=== PATIENT | male | born 1965 | race Caucasian/White ===

== ENCOUNTER 2023-06-28 00:22 | Day surgery (SDC) | payer BC, SELFPAY ==
[2023-06-03 13:26] VITALS: BMI 25.3
--- NOTE | 2023-06-27 17:53 | PM.HPGS ---
History of Present Illness History of Present Illness Consent: Risks, benefits, and alternatives have been discussed and questions answered. Patient agrees to proceed with procedure. Chief complaint: hx of colon polyps Narrative: Cristo Acosta is a 57 year old male Who underwent colonoscopy 6 years ago which time he had an adenomatous polyp removed. Review of Systems Review of Systems: All systems reviewed & are unremarkable except as noted in HPI and below PMFSH Past Medical History Medical History Chronic cough Nasal congestion Seborrheic dermatitis Wellness examination Family History Family History Mother Hypertension Social History Social History Smoking status: Former smoker Smoking end date: 06/17/01 Alcohol intake: current Drinks per week: 7 Substance use: never Living arrangements: with family Occupation/Education: occupation Gender identity (if verbalized by the patient): Male Sexual Orientation (if Verbalized by the Patient): Straight or Heterosexual Spiritual care concerns: No Meds Home Medications and Allergies Home Medications Medication Instructions Recorded Confirmed Type amlodipine 10 mg tablet 10 mg PO DAILY #90 tabs 10/04/22 06/28/23 Rx vitamin B complex 1 tablet PO DAILY #30 tabs 10/04/22 06/28/23 Rx cetirizine 10 mg capsule (Zyrtec) 10 mg PO DAILY 06/03/23 06/28/23 History Allergies Allergy/AdvReac Type Severity Reaction Status Date / Time lisinopril AdvReac Unknown Cough Verified 06/28/23 09:46 Exam Const: General: alert Orientation/consciousness: patient oriented x3 Resp: Auscultation: clear to auscultation bilaterally Cardio: Rhythm: regular rhythm GI: GI Palp: Yes Soft to palpation and No Tenderness to palpation present (GI) Neuro: General: patient oriented x3 Assessment and Plan Assessment and plan (1) Colon cancer screening: Code(s): Z12.11 - Encounter for screening for malignant neoplasm of colon Status: Acute Assessment and Plan: Colonoscopy with possible biopsy or polypectomy or cautery or injection of substances.
[2023-06-28 09:48] VITALS: BP 139/90; PULSE 81; RESP 18; TEMP 36.6; O2SAT 99; BMI 25.4
[2023-06-28] MEDS: LACTATED RINGERS 1,000 ML 150 ML IV CONT (09:58)
--- NOTE | 2023-06-28 10:27 | P.PNAN_ITS ---
Anes - Initial Pre Proc Eval Procedure: Operation Date: 06/28/23 11:00 Proposed Procedures p Colonoscopy - Amando Tavarez MD Date/Time: 06/28/23 10:27 Surgeon: Amando Tavarez MD Pre Op Diagnosis: hx of colon polyps Patient Data Age: 57 Gender: M Height: 1.91 m Weight: 92.6 kg Last Vital Signs Temp 98 F 06/28/23 09:48 Pulse 81 06/28/23 09:48 Resp 18 06/28/23 09:48 BP 139/90 06/28/23 09:48 Pulse Ox 99 06/28/23 09:48 O2 Del Method Room Air 06/28/23 09:48 Allergies Allergy/AdvReac Type Severity Reaction Status Date / Time lisinopril AdvReac Unknown Cough Verified 06/28/23 09:46 Home Medications Medication Instructions Recorded Confirmed Type amlodipine 10 mg tablet 10 mg PO DAILY #90 tabs 10/04/22 06/28/23 Rx vitamin B complex 1 tablet PO DAILY #30 tabs 10/04/22 06/28/23 Rx cetirizine 10 mg capsule (Zyrtec) 10 mg PO DAILY 06/03/23 06/28/23 History Patient hx anesthesia problems: none Family hx anesthesia problems: none Results Review: All pre-operative results and documents have been reviewed as part of the pre- operative evaluation. [facility] Past Medical History Medical History Chronic cough Nasal congestion Seborrheic dermatitis Wellness examination Family History Family History Mother Hypertension Social History Social History Smoking status: Former smoker Smoking end date: 06/17/01 Alcohol intake: current Drinks per week: 7 Substance use: never Living arrangements: with family Occupation/Education: occupation Gender identity (if verbalized by the patient): Male Sexual Orientation (if Verbalized by the Patient): Straight or Heterosexual Spiritual care concerns: No Anes - Eval Final PreProcedure Day of Procedure 06/28/23 10:27 Patient weight: normal Heart: regular rate and rhythm Lungs: clear to auscultation Airway: Mallampati scale class II Neurological: alert and oriented Last oral intake: >/= 8 hours ASA classification: II Emergent: no Anesthetic plan: proceed Anesthesia type and monitoring: general GIVS and standard monitoring Results Review: All pre-operative results and documents have been reviewed as part of the pre- operative evaluation. Informed Consent: The patient's anesthetic plan and its attendant risks and benefits were discussed with the patient/family/POA. Questions were solicited and answers provided to the satisfaction of the patient/family/POA.
[2023-06-28] MEDS: SIMETHICONE ORAL SUSPENSION 20 MG/0.3 ML 30 ML BOTTLE 0.6 ML IRRIGATION (10:55)
[2023-06-28 11:02] VITALS: BP 107/73; PULSE 75; RESP 20; O2SAT 97
[2023-06-28 11:12] VITALS: BP 106/68; PULSE 75; RESP 23; O2SAT 97
[2023-06-28 11:22] VITALS: BP 126/86; PULSE 75; RESP 20; O2SAT 97
== END 2023-06-28 11:30 | disposition home or self-care (01) ==
PROVIDERS: PCP Family Medicine; Visit Provider Internal Medicine Gastroenterology
PROC: 0DJD8ZZ Inspection of Lower Intestinal Tract, Via Natural or Artificial Opening Endoscopic (ICD-10-PCS; CPT 45378; principal; 2023-06-28 11:00)
DX: Z12.11 Encounter for screening for malignant neoplasm of colon (principal); K63.5 Polyp of colon; K57.30 Diverticulosis of large intestine without perforation or abscess without bleeding; Z87.891 Personal history of nicotine dependence
CPT/HCPCS: 45380; 88305; J2704; J7120